=== PATIENT | female | born 1945 | race Caucasian/White ===

== ENCOUNTER 2019-10-15 12:40 | Emergency (ER) | payer MEDICARE, SELFPAY ==
--- NOTE | ~2019-10-15 | XR_ITS ---
EXAMINATION: XR pelvis 1-2V DATE: 10/15/2019 13:14 INDICATION: Pelvic pain. Fall. TECHNIQUE: An anteroposterior view of the pelvis was obtained. COMPARISON: None. FINDINGS: There is dextrocurvature and severe spondylosis of lumbar spine. No fracture. There is mild osteoarthritis of the hips. IMPRESSION: 1. Mild osteoarthritis of the hips. Reviewed, dictated and finalized at location A. NCIAL AID MANAGER
--- NOTE | ~2019-10-15 | XR_ITS ---
EXAMINATION: XR chest 1V DATE: 10/15/2019 13:13 INDICATION: Chest pain. Fall. TECHNIQUE: A single frontal view of the chest was obtained. COMPARISON: None. FINDINGS: The chest demonstrates clear lungs without pneumonia, pleural effusion, or pneumothorax. Th e heart size is normal. There is a left chest wall pacer with leads in the right atrium and right roxanne tricle. IMPRESSION: 1. No acute cardiopulmonary disease. Reviewed, dictated and finalized at location A. DENT SERVICES COORDINATOR
--- NOTE | ~2019-10-15 | CT_ITS ---
EXAMINATION: CT brain wo con, CT cervical spine wo con EXAM DATE: 10/15/2019 13:11 (accession [id number]), 10/15/2019 13:12 (accession [id number]) INDICATION: Fall, head injury. TECHNIQUE: Spiral CT of the head was performed without contrast. Axial, coronal and sagittal images were reviewed. Spiral CT of the cervical spine was performed without contrast. Axial images were rev iewed. Coronal and sagittal reformatted images were also reviewed. The dose-length product (DLP) fo r this examination was 1059.33 (accession [id number]), 336.58 (accession [id number]) mGy-cm. The exposure was tailored according to patient size, and iterative reconstruction (ASIR) was used as additional dose reduction technique. Comparison is made to prior examination from 09/22/2019. FINDINGS: HEAD CT: There is no acute intraparenchymal hemorrhage. No evidence of intraparenchymal brain mass l esion. No evidence of acute infarction. There is moderate periventricular and subcortical hypodensit y, nonspecific but probably related to small vessel ischemic disease. There is moderate prominence of the sulci and ventricles related to cerebral atrophy. There is intracranial carotid arterioscler osis. There is no mass effect or midline shift. There is no obstructive hydrocephalus suspected. T here are no extra-axial collections. There are no acute calvarial fractures. The orbits are unremar kable. Soft tissue is unremarkable. The visualized sinuses and mastoid air cells are well aerated. CERVICAL CT: Pacemaker/AICD device. There is no evidence of acute cervical fracture. The odontoid pr ocess is intact. Pre-dens space is normal. Prevertebral soft tissue is normal. There are no soft t issue abnormalities identified. There is no disc space widening or traumatic vertebral body subluxat ion suspected. Degenerative anterolisthesis C4 on C5. Some advanced cervical facet arthropathy. A d etailed level by level evaluation of spondylosis can be added as addendum if requested. IMPRESSION: 1. No acute intracranial or cervical findings. 2. Age-related intracranial findings. 3. Cervical spondylosis. Reviewed, dictated and finalized at location A. R AWAY IMPRESSION: 1. No acute intracranial or cervical findings. 2. Age-related intracranial findings. 3. Cervical spondylosis.
--- NOTE | 2019-10-15 12:45 | ED.GENADULT ---
HPI - General Adult General Chief complaint: Fall Stated complaint: Fall Time Seen by Provider: 10/15/19 12:43 Source: EMS Mode of arrival: EMS Limitations: dementia History of Present Illness HPI narrative: Pt is a 74 y/o female, with a H/o dementia, who presents to the ED, via EMS, from [facility], secondary to an unwitnessed fall. Pt is normally oriented x1 and she takes ASA 81mg daily. Per EMS, pt was c/o pain to her posterior head, shoulders, and chest. A complete HPI is limited d/t pt's dementia. MD complaint: Fall Onset (ago): unknown Location: head, chest and back (shoulders) Associated symptoms: other (CP, shoulder pain, posterior head pain) Treatments prior to arrival: aspirin Related Data Home Medications Medication Instructions Recorded Confirmed Lactobacillus acidophilus 09/22/19 [Acidophilus] acetaminophen 650 mg PO Q4-5H PRN 09/22/19 aspirin [Aspirin Low Dose] 09/22/19 clindamycin HCl 300 mg PO Q6H 09/22/19 insulin glargine [Lantus Solostar 16 unit SUBCUT HS 09/22/19 U-100 Insulin] insulin regular human [Novolin R 1 sliding scale dose SUBCUT 09/22/19 Regular U-100 Insuln] USEASDIRECTD lorazepam [Ativan] PRN 09/22/19 losartan 09/22/19 memantine-donepezil [Namzaric] 1 cap PO DAILY 09/22/19 metformin 500 mg PO BID 09/22/19 nifedipine 30 mg PO DAILY 09/22/19 risperidone [Risperdal] mg BID 09/22/19 Allergies Allergy/AdvReac Type Severity Reaction Status Date / Time No Known Allergies Allergy Verified 09/22/19 10:52 Review of Systems Review of Systems: Narrative: A complete ROS is limited d/t pt's dementia. Cardiovascular: Cardiovascular: Reports chest pain Musculoskeletal: Musculoskeletal: Reports other (shoulder pain) Neurologic: Reports other (posterior head pain) [facility] Social History Social History Smoking status: Never smoker Gender identity (if verbalized by the patient): Female Exam Narrative: Exam Narrative: APPEARANCE: No acute distress, nontoxic,, repeatedly try to get up and out of bed EYES: EOMI, Brenna HEENT: Normocephalic, atraumatic, OMM Neck: Supple, no midline tenderness palpation RESPIRATORY: No respiratory distress Clear to auscultation bilaterally with no rhonchi wheezing or rales. CARDIOVASCULAR: Regular rate and rhythm without murmurs rubs or gallops. ABDOMINAL: Soft, nontender, nondistended, no rebound or guarding MUSCULOSKELETAl: Moves all extremities. No clubbing, cyanosis or edema. 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 Following commands, speech normal, no focal deficits SKIN:: Warm, dry. No rashes lesions or abrasions PSYCHIATRIC: Normal affect/mood, Course Course Emergency Course: Per nursing staff patient is ANO x1 at baseline Discussed with patient results of workup and diagnosis. Discussed need for follow-up with primary care, proper use of medication, and reasons to return to the emergency department. Patient understands and agrees to current treatment plan Vital Signs Vital signs: Vital Signs Temperature 97.8 F 10/15/19 12:47 Pulse Rate 78 10/15/19 12:47 Respiratory Rate 15 10/15/19 12:47 Pulse Oximetry 98 10/15/19 12:47 Temperature 97.8 F 10/15/19 12:47 Pulse Rate 89 10/15/19 13:26 Respiratory Rate 17 10/15/19 13:26 Blood Pressure 140/98 H 10/15/19 13:26 Pulse Oximetry 96 10/15/19 13:26 Medical Decision Making Vital Signs Vital Signs: Vital Signs Temperature 97.8 F 10/15/19 12:47 Pulse Rate 78 10/15/19 12:47 Respiratory Rate 15 10/15/19 12:47 Pulse Oximetry 98 10/15/19 12:47 Temperature 97.8 F 10/15/19 12:47 Pulse Rate 89 10/15/19 13:26 Respiratory Rate 17 10/15/19 13:26 Blood Pressure 140/98 H 10/15/19 13:26 Pulse Oximetry 96 10/15/19 13:26 Imaging Data Radiologist's impression:
[2019-10-15 12:47] VITALS: PULSE 78; RESP 15; TEMP 36.6; O2SAT 98
--- NOTE | 2019-10-15 12:55 | PC.NURSE ---
PT TAKEN TO CT AT THIS TIME.
[2019-10-15 13:26] VITALS: BP 140/98; PULSE 89; RESP 17; O2SAT 96
--- NOTE | 2019-10-15 14:10 | PC.NURSE ---
Called [facility] to transport pt back to longterm. 25 minute eta. Trip# [id number]
[2019-10-15 14:11] VITALS: BP 110/61; PULSE 83; RESP 18; O2SAT 97
--- NOTE | 2019-10-15 15:00 | PC.NURSE ---
Updated ETA of [facility] is [id number]
--- NOTE | 2019-10-15 15:02 | PC.NURSE ---
Called [facility] to transport pt back to assisted. They said they have a truck and sending them enroute now
[2019-10-15 16:16] VITALS: BP 137/57; PULSE 75; RESP 14; O2SAT 98
== END 2019-10-15 16:18 ==
LOC: ANHED 13:57
PROVIDERS: Emergency Provider Emergency Medicine
DX: S00.93XA Contusion of unspecified part of head, initial encounter (principal); W18.30XA Fall on same level, unspecified, initial encounter; Z91.81 History of falling; F03.90 Unspecified dementia, unspecified severity, without behavioral disturbance, psychotic disturbance, mood disturbance, and anxiety
CPT/HCPCS: 70450; 71045; 72125; 72170; 99284